=== PATIENT | female | born 1980 | race Caucasian/White ===

== ENCOUNTER 2021-03-06 16:10 | Inpatient (IN) | payer MEDICAID ==
[~2021-03-06] VITALS: Ht 160 cm; Wt 76.7 kg
[2021-03-06] MEDS ORDERED: ASPI-986 PO (16:45)
[2021-03-06 17:42] LABS: BASOPHILS % 0.6 % (0.0-2.0); EOSINOPHILS % 1.7 % (0.0-5.0); HEMATOCRIT. 42.3 % (36.0-48.0); HEMOGLOBIN. 14.1 g/dL (12.0-16.0); LYMPHOCYTES % 31.5 % (20.0-50.0); MEAN CORPUSCULAR VOLUME 87.2 fL (81.0-99.0); NEUTROPHILS % 61.2 % (40.0-76.0); PLATELET 268 x1000/uL (130-400); RED BLOOD CELL COUNT 4.86 mill/uL (4.2-5.4)
[2021-03-06 17:48] LABS: CHLORIDE 112 mEq/L (98-107)
[2021-03-06 21:34] LABS: CLARITY URINE CLEAR (CLEAR); COLOR URINE YELLOW (YELLOW); KETONES URINE TRACE (NEGATIVE); LEUKOCYTE ESTERASE URINE NEGATIVE (NEGATIVE); NITRITE URINE NEGATIVE (NEGATIVE); OCCULT BLOOD URINE NEGATIVE (NEGATIVE); PH URINE 5.5 (4.5-8.0); PROTEIN URINE NEGATIVE (NEGATIVE); SPECIFIC GRAVITY URINE 1.026 (1.005-1.030); UROBILINOGEN URINE 0.2 E.U./dL (0.2-1.0)
[2021-03-06] MEDS ORDERED: KETOROLAC 30MG/ML VIAL IV STA (22:39)
[2021-03-06] MEDS ORDERED: SODIUM CHLORIDE 0.9% 1,000 ML IV ONE (22:45)
[2021-03-06 23:32] LABS: B-HCG QUANTITATIVE < 1 mIU/mL (<3)
[2021-03-07] MEDS ORDERED: ACETAMINOPHEN 325MG TABLET PO ONE (04:00)
[2021-03-07] MEDS ORDERED: IOHEXOL-300 100 ML BOTTLE ONE (04:05)
[2021-03-07 11:48] VITALS: BP 108/64
[2021-03-07 13:21] VITALS: BP 108/64
== END 2021-03-07 13:40 | disposition home or self-care (01) | DRG 254 ==
LOC: ER 16:10 → 6EST 03-07 04:07 → ENRESERV 03-07 07:16
PROVIDERS: ADMIT Obstetrics & Gynecology; ATTEND Obstetrics & Gynecology
DX: R19.00 Intra-abdominal and pelvic swelling, mass and lump, unspecified site (principal); Z90.49 Acquired absence of other specified parts of digestive tract; Z98.891 History of uterine scar from previous surgery
CPT/HCPCS: 36415; 74177; 76830; 76856; 80053; 81003; 84484; 84702; 85025; 93005; 99285; J1885; J7030; Q9967

== ENCOUNTER 2021-04-12 13:28 | Inpatient (IN) | payer MEDICAID ==
[~2021-04-12] VITALS: Ht 157.5 cm; Wt 74.4 kg
[~2021-04-12 13:28] MED LIST: ASPI-986 PO
[2021-04-12] MEDS ORDERED: ACETAMINOPHEN 325MG TABLET PO STA (14:21)
[2021-04-12] MEDS ORDERED: SODIUM CHLORIDE 0.9% 1,000 ML IV ONE (14:30)
[2021-04-12] MEDS ORDERED: ONDANSETRON HCL 4MG/2ML INJ IV NR (15:00)
[2021-04-12] MEDS ORDERED: MORPHINE SULFATE 4 MG/ML CPJ (NOT FOR IM USE) IV NR (15:00)
[2021-04-12 15:15] LABS: BASOPHILS % 0.7 % (0.0-2.0); CLARITY URINE CLEAR (CLEAR); COLOR URINE YELLOW (YELLOW); EOSINOPHILS % 1.3 % (0.0-5.0); HEMATOCRIT. 40.5 % (36.0-48.0); HEMOGLOBIN. 13.4 g/dL (12.0-16.0); KETONES URINE TRACE (NEGATIVE); LEUKOCYTE ESTERASE URINE NEGATIVE (NEGATIVE); LYMPHOCYTES % 26.9 % (20.0-50.0); MEAN CORPUSCULAR HEMOGLOBIN 28.4 pg (28.0-32.0); MEAN CORPUSCULAR VOLUME 86.1 fL (81.0-99.0); MONOCYTES % 6.1 % (2.0-8.0); NITRITE URINE NEGATIVE (NEGATIVE); OCCULT BLOOD URINE NEGATIVE (NEGATIVE); PH URINE 5.5 (4.5-8.0); PLATELET 293 x1000/uL (130-400); PROTEIN URINE NEGATIVE (NEGATIVE); RED BLOOD CELL COUNT 4.71 mill/uL (4.2-5.4); RED CELL DISTRIBUTION WIDTH 14.2 % (11.6-14.6); SPECIFIC GRAVITY URINE 1.031 (1.005-1.030); UROBILINOGEN URINE 0.2 E.U./dL (0.2-1.0)
[2021-04-12 15:18] LABS: CHLORIDE 110 mEq/L (98-107)
[2021-04-12 15:24] LABS: ETHANOL BLOOD < 10 mg/dL
[2021-04-12 15:30] LABS: *AMPHETAMINES SCREEN URINE NEGATIVE (NEGATIVE); *BARBITURATES SCREEN URINE NEGATIVE (NEGATIVE); *BENZODIAZEPINES SCREEN URINE NEGATIVE (NEGATIVE); *COCAINE SCREEN URINE NEGATIVE (NEGATIVE); CANNABINOID URINE SCREEN NEGATIVE (NEGATIVE); METHADONE URINE SCREEN NEGATIVE (NEGATIVE); OPIATES URINE SCREEN NEGATIVE (NEGATIVE); PHENCYCLIDINE URINE SCREEN NEGATIVE (NEGATIVE)
[2021-04-12 17:51] LABS: HCG SCREEN NEGATIVE
[2021-04-12] MEDS ORDERED: MORPHINE SULFATE 4 MG/ML CPJ (NOT FOR IM USE) IV ONE (19:00)
[2021-04-13] MEDS ORDERED: MORPHINE SULFATE 2 MG/ML CPJ (NOT FOR IM USE) IV PRN (03:00)
[2021-04-13 08:30] VITALS: BP 95/56
[2021-04-13] MEDS ORDERED: IBUP-2437 MT (09:42)
[2021-04-13] MEDS ORDERED: ONDANSETRON HCL 4MG/2ML INJ IV PRN (09:45)
[2021-04-13] MEDS ORDERED: KETOROLAC 30MG/ML VIAL IV PRN (09:45)
[2021-04-13] MEDS ORDERED: ACETAMINOPHEN 325MG TABLET PO PRN (09:45)
[2021-04-13] MEDS ORDERED: LACTULOSE 20G/30ML UDC PO SCH (09:45)
[2021-04-13 10:49] VITALS: BP 95/56
[2021-04-13] MEDS ORDERED: IOHEXOL-300 100 ML BOTTLE ONE (11:45)
[2021-04-13] MEDS ORDERED: INFLUENZA VACCINE 05/PF 0.5 ML SYRINGE IM ONE (14:00)
== END 2021-04-13 13:03 | disposition left against medical advice (07) | DRG 532 ==
LOC: ER 13:28 → MICUSO 19:25 → 6WST 04-13 07:15
PROVIDERS: ADMIT Internal Medicine; ATTEND Internal Medicine
DX: D27.0 Benign neoplasm of right ovary (principal); E87.8 Other disorders of electrolyte and fluid balance, not elsewhere classified; K59.00 Constipation, unspecified; Z53.29 Procedure and treatment not carried out because of patient's decision for other reasons; Z20.822 Contact with and (suspected) exposure to COVID-19; Z82.49 Family history of ischemic heart disease and other diseases of the circulatory system; Z90.49 Acquired absence of other specified parts of digestive tract; Z98.891 History of uterine scar from previous surgery
CPT/HCPCS: 36415; 74177; 76830; 76856; 80053; 80305; 80320; 81003; 83605; 84703; 85025; 87426; 99285; J1885; J2270; J2405; J7030; Q9967; G0480